=== PATIENT | female | born 2005 | race Hispanic/Latino ===

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

== ENCOUNTER 2024-02-07 19:04 | Emergency (ER) | payer SELFPAY ==
[2024-02-07 19:08] VITALS: BP 142/71; PULSE 109; RESP 16; TEMP 38.4; O2SAT 97
[2024-02-07] MEDS: ACETAMINOPHEN 325 MG TABLET 975 MG PO (19:25)
[2024-02-07 20:05] LABS: Strep Grp A by PCR Rapid Negative (Negative)
[2024-02-07 20:08] LABS: Influenza A - CEPHEID Flu A NEGATIVE (NEGATIVE); Influenza B - CEPHEID Flu B NEGATIVE (NEGATIVE); Respiratory Syncytial Virus Negative (Negative)
[2024-02-07 20:14] LABS: COVID-19 CEPHEID 4-PLEX PCR Negative (Negative)
[2024-02-07 23:30] VITALS: BP 122/57; PULSE 72; RESP 19; TEMP 37.6; O2SAT 100
--- NOTE | 2024-02-07 23:37 | ED_ITS ---
HPI - URI/Sore Throat General Chief Complaint: Upper Respiratory Symptoms Stated Complaint: sore throat, fever, dizziness, headache Time Seen by Provider: 02/07/24 22:58 Source: patient, RN notes reviewed and old records reviewed Mode of arrival: Ambulatory Limitations: no limitations History of Present Illness HPI Narrative: 18-year-old female with a history of ADHD, anxiety depression who presents with complaint of fever, feeling dizzy earlier sore throat. Patient states she has had about 24 hours of fevers, sore throat that has been getting worse. No hoarseness or muffled voice. She has not had any nasal congestion. She denies any cough. States it hurts to swallow. Has been able to swallow her saliva. Patient denies chest pain or pressure. No shortness of breath. She had some nausea earlier but no vomiting. Did have some diarrhea earlier today. No black or bloody stools. No rash or skin changes. Patient states no known sick contacts. States she takes medication for ADHD and anxiety and depression. Denies any major surgeries. No known drug allergies. Former smoker, no regular alcohol, no recreational drugs reported. Related Data Home Medications Medication Instructions Recorded Confirmed multivitamin 1 tab PO DAILY 12/23/21 01/09/24 spironolactone 25 mg tablet 25 mg PO DAILY 07/23/23 01/09/24 Previous Rx's Medication Instructions Recorded propranolol 10 mg tablet 10 mg PO BID PRN anxiety #60 tabs 08/22/23 citalopram 40 mg tablet 40 mg PO DAILY Depression/Anxiety 12/06/23 #30 tabs methylphenidate HCl 36 mg 36 mg PO QAM ADHD #30 tabs 12/06/23 tablet,extended release 24 hr methylphenidate HCl 36 mg 36 mg PO QAM ADHD #30 tabs 12/06/23 tablet,extended release 24 hr amoxicillin 500 mg tablet 500 mg PO TID #30 tabs 02/07/24 Allergies Allergy/AdvReac Type Severity Reaction Status Date / Time No Known Drug Allergies Allergy Verified 02/07/24 19:23 Review of Systems Review of Systems ROS Unobtainable: All systems reviewed & are unremarkable except as noted in HPI and below Patient History Social History Smoking Status: Former smoker Smoking Status: Former smoker tobacco type: vaping Exam Narrative Exam Narrative: GEN: well nourished, well appearing female, alert and oriented x 3, patient appears to be in mild distress. HEENT: Atraumatic, pupils are equal round reactive to light, extraocular movements are intact, nares are clear, TMs are clear with no fluid, there is no conjunctival pallor. Throat is erythematous, patient has bilateral tonsillar enlargement with exudate, uvula is midline, patient handles secretions without issue. No muffled voice or hoarseness. She was lying back in the bed without any issue. HEART: Regular rate and rhythm without murmur, clicks, rubs. LUNGS:Lungs clear to auscultation, no wheezes, rales, crackles, chest moves symmetrically ABD:bowel sounds normal, soft, non-tender, no guarding, rebound, rigidity, no masses noted, no hepatosplenomegaly MSCL: Non-tender, no muscle atrophy, muscles strength 5/5 upper and lower extremities, full range of motion, normal gait NEURO:CN 2-12 intact, sensation normal Initial Vital Signs Initial Vital Signs: Vital Signs Temperature 101.2 F H 02/07/24 19:08 Pulse Rate 109 H 02/07/24 19:08 Respiratory Rate 16 02/07/24 19:08 Blood Pressure 142/71 H 02/07/24 19:08 Pulse Oximetry 97 02/07/24 19:08 Oxygen Delivery Method Room Air 02/07/24 19:08 Course Orders Ordered: ED Orders 02/07/24 19:16 Covid-19 + FLU A/B + RSV - PCR Stat Strep Grp A by PCR Rapid Stat Throat Culture Stat Discontinued Medications Acetaminophen (Acetaminophen 325 Mg Tablet) 975 mg PO NOW ONE Stop: 02/07/24 19:23 Last Admin: 02/07/24 19:25 Dose: 975 mg Documented By: JANE Amoxicillin (Amoxicillin 250 Mg Capsule) 500 mg PO NOW ONE Stop: 02/07/24 23:44 Last Admin: 02/07/24 23:54 Dose: 500 mg Documented By: AURORA Dexamethasone (Dexamethasone 10 Mg/Ml Vial) 10 mg PO NOW ONE Stop: 02/07/24 23:44 Last Admin: 02/07/24 23:54 Dose: 10 mg Documented By: AURORA Vital Signs Vital signs: Vital Signs - 8 hr 02/07/24 23:30 Temperature 99.7 F H Pulse Rate 72 Respiratory Rate 19 Blood Pressure 122/57 L Pulse Oximetry 100 MDM - URI/Sore Throat Lab Data Labs: Lab Results 02/07/24 Range/Units 19:16 SARS-CoV-2 (PCR) Negative (Negative) Influenza A (RT-PCR) Flu a negative (NEGATIVE) Influenza B (RT-PCR) Flu b negative (NEGATIVE) RSV (PCR) Negative (Negative) Group A Strep (PCR) Negative (Negative) [facility] Narrative Medical decision making narrative: Rapid strep and COVID/influenza/RSV are all negative. Patient has exam most consistent with strep. She was febrile, little bit tachycardic but improved with treatment of her fever. She does meet center criteria to start antibiotics. She does have a throat culture pending but we will go ahead and start oral antibiotics this evening. Was given 1 dose of dexamethasone for symptoms. Discharge Plan Departure Patient Disposition: Home Clinical Impression: Pharyngitis Instructions: DI for Strep Throat Activity Restrictions/Additional Instructions: Suspect you have strep throat although your rapid strep test was negative. You have a throat culture pending but this takes about 48-72 hours to result. You has been started on antibiotics. clinical support associate your prescription and start your next dose in the morning. Take your antibiotics until completed. Prescription sent to [facility] in [place]. You can take Tylenol up to a 1000 mg and/or ibuprofen up to 600 mg every 6 hours as needed for pain. Make sure to drink plenty of fluids to help stay hydrated. Please return if you are having rapidly worsening symptoms, swelling of one side of your neck or throat, muffled voice, difficulty swallowing saliva or secretions, persistent vomiting, new chest pain or shortness of breath or other new or concerning changes. Prescriptions: New amoxicillin 500 mg tablet 500 mg PO TID Qty: 30 0RF No Action spironolactone 25 mg tablet 25 mg PO DAILY multivitamin Tablet 1 tab PO DAILY propranolol 10 mg tablet 10 mg PO BID PRN (Reason: anxiety) Qty: 60 2RF citalopram 40 mg tablet 40 mg PO DAILY Qty: 30 2RF Rx Instructions: Dosage Change methylphenidate HCl 36 mg tablet extended release 24hr 36 mg PO QAM Qty: 30 0RF methylphenidate HCl 36 mg tablet extended release 24hr 36 mg PO QAM Qty: 30 0RF Rx Instructions: Dose Change Referrals: Meena Ribeiro ARNP [Primary Care Provider] - Stand Alone Forms: Patient Portal/API
[2024-02-07] MEDS: AMOXICILLIN 250 MG CAPSULE 500 MG PO (23:54)
[2024-02-07] MEDS: DEXAMETHASONE 10 MG/ML VIAL PO (23:54)
== END 2024-02-08 00:13 | disposition home or self-care (01) ==
PROVIDERS: Emergency Provider Emergency Medicine; Family Provider Internal Medicine; PCP Internal Medicine
DX: J02.9 Acute pharyngitis, unspecified (principal); R00.0 Tachycardia, unspecified; Z11.52 Encounter for screening for COVID-19
CPT/HCPCS: 0241U; 87070; 87147; 87651; 99283; J1100